=== PATIENT | male | born 1990 | race Caucasian/White ===

== ENCOUNTER 2016-09-29 08:50 | Emergency (ER) | payer SELFPAY ==
[2016-09-29 08:56] VITALS: BP 133/90; PULSE 99; RESP 16; TEMP 97.7; O2SAT 95
--- NOTE | 2016-09-29 09:11 | EDPHY ---
H & P Smoking Status: Former smoker Time Seen by Provider: 09/29/16 08:58 HPI/ROS: CHIEF COMPLAINT: right ankle pain HISTORY OF PRESENT ILLNESS: This otherwise healthy 26-year-old male, presents to the emergency department after an inversion ankle injury. This happened last night, the patient was able to walk on it after the injury. He denies head strike, neck pain, loss of consciousness. The patient complains of pain to the lateral ankle and swelling. The patient has no other complaints, denies numbness or tingling to affected limb. (Lauren Garrison) Physical Exam: General appearance: alert no distress Right ankle: There is swelling and tenderness over the lateral ankle. TTP to ATFL and CFL. There is no tenderness over the achilles tendon. The foot is non-tender without swelling. No TTP over 5th metatarsal. Neurologic exam: The patient has normal sensation and motor function distal to the injury. Vascular exam: Normal pulses and capillary refill in the foot (Lauren Garrison) Constitutional: Initial Vital Signs Temperature (C) 36.5 C 09/29/16 08:53 Heart Rate 99 09/29/16 08:53 Respiratory Rate 16 09/29/16 08:53 Blood Pressure 133/90 H 09/29/16 08:53 O2 Sat (%) 95 09/29/16 08:53 O2 Delivery Mode Room Air Allergies/Adverse Reactions: No Known Allergies Allergy (Unverified 04/01/10 08:56) Home Medications: Medication Instructions Recorded Divalproex ER [Depakote ER 500 MG 1,500 mg PO HS #90 tab 07/06/15 (*)] Zolpidem Tartrate [Ambien 5MG (*)] 10 mg PO HS PRN #30 tab 07/06/15 [place] 09/29/16 MDM/Departure - MDM Diagnostics: Ankle x-ray independently reviewed by me- No fracture, lateral soft tissue swelling (Lauren Garrison) Medications Given: Discontinued Medications Acetaminophen (Tylenol) 650 mg PO EDNOW ONE Stop: 09/29/16 09:17 Last Admin: 09/29/16 09:28 Dose: 650 mg Ibuprofen (Motrin) 600 mg PO EDNOW ONE Stop: 09/29/16 09:17 Last Admin: 09/29/16 09:28 Dose: 600 mg ED Course/Re-evaluation: This patient was evaluated and managed by the nurse practitioner. I have reviewed the chart and agree with the findings and plan of care as documented. ( Jenny Nagy) - Depart Disposition: Home, Routine, Self-Care Clinical Impression: Right ankle sprain Qualifiers: Encounter type: initial encounter Involved ligament of ankle: unspecified ligament Qualifier Code: (S93.401A) Sprain of unspecified ligament of right ankle, initial encounter Condition: Good Instructions: Ankle Sprain (ED) Additional Instructions: Rest, ice, elevate, take 600mg of ibuprofen every 8 hours with food for 3-5 days as needed for pain and swelling. Return to the emergency department for any numbness, tingling, discoloration of you limb or other concerns. Use crutches as needed. Follow up with orthopedist in 7-10 days for symptoms that are not improving. Start the ankle exercises in the next couple days as your pain allows. Referrals: Neema Sol MD [Medical Doctor] - As per Instructions (Orthopedist on-call)
[2016-09-29] MEDS ORDERED: IBUPROFEN 600 MG TAB PO ONE ×2 (09:16→09:59)
[2016-09-29] MEDS ORDERED: ACETAMINOPHEN 325 MG TAB PO ONE (09:16)
--- NOTE | 2016-09-29 09:48 | DX ---
Right Ankle 3 Views History: Rolled ankle last evening with pain. Comparison: Right ankle April 01, 2010. Findings: There is subtle contour irregularity of the lateral malleolus that could be related to a no ndisplaced avulsion fracture. Alignment is normal. Bone mineralization is normal. The talar dome and ankle mortise are intact. There is extensive lateral and minimal medial soft tissue swelling. There i s no joint effusion. Impression: Possible nondisplaced avulsion fracture of the lateral malleolus.
== END 2016-09-29 10:02 | disposition home or self-care (01) ==
DX: S93.401A Sprain of unspecified ligament of right ankle, initial encounter (principal); Z87.891 Personal history of nicotine dependence; X58.XXXA Exposure to other specified factors, initial encounter
CPT/HCPCS: L4350